=== PATIENT | male | born 1945 | race Caucasian/White ===

== ENCOUNTER 2018-11-22 10:06 | Outpatient (CLI) | payer OTHER | END 2018-11-22 19:01 | disposition home or self-care (01) | LOC: SRD 10:06 | PROVIDERS: ATTEND Internal Medicine | DX: R05 Cough (principal); M47.814 Spondylosis without myelopathy or radiculopathy, thoracic region; M41.84 Other forms of scoliosis, thoracic region | CPT/HCPCS: 71046-TC ==